=== PATIENT | male | born 1940 | race Caucasian/White ===

== ENCOUNTER → 2018-10-13 | Outpatient (REF) ==
[2018-10-13 18:11] LABS: THYROID STIMULATING HORMONE 2.25 uIU/mL (0.465-4.680)
[2018-10-13 18:53] LABS: PSA-TOTAL 1.84 ng/mL (0-4)
== END ==
LOC: ZLAB.WCH 17:19
PROVIDERS: Internal Medicine
DX: Z01.89 Encounter for other specified special examinations (principal)
CPT/HCPCS: G0103

== ENCOUNTER → 2018-10-17 | Outpatient (REF) | LOC: ZLAB.WCH 17:35 | DX: Z01.89 Encounter for other specified special examinations (principal) ==